=== PATIENT | male | born 1965 | race Caucasian/White ===

== ENCOUNTER → 2017-02-10 | Outpatient (REF) | payer OTHER ==
[2017-02-10 12:02] LABS: MEAN CORPUSCULAR HEMOGLOBIN 32.4 pg (27.0-33.0); MEAN CORPUSCULAR HGB CONC 34.6 g/dl (32.0-36.5); MEAN CORPUSCULAR VOLUME 93.6 fl (80.0-96.0); RED CELL DISTRIBUTION WIDTH 12.5 % (11.5-14.5); WHITE BLOOD COUNT 5.6 K/mm3 (4.0-10.0)
[2017-02-10 12:34] LABS: ALBUMIN/GLOBULIN RATIO 1.29 (1.00-1.93); ALKALINE PHOSPHATASE 89 U/L (45-117); ALT/SGPT 38 U/L (12-78); ANION GAP 6 MEQ/L (8-16); AST/SGOT 11 U/L (15-37); BILIRUBIN,TOTAL 1.1 MG/DL (0.2-1.0); BLOOD UREA NITROGEN 16 MG/DL (7-18); CALCIUM LEVEL 9.5 MG/DL (8.5-10.1); CARBON DIOXIDE LEVEL 29 MEQ/L (21-32); CHLORIDE LEVEL 105 MEQ/L (98-107); CHOLESTEROL LEVEL 232 MG/DL (<200); CREATININE FOR GFR 1.09 MG/DL (0.70-1.30); GLOMERULAR FILTRATION RATE > 60.0 (>56); GLUCOSE, FASTING 92 MG/DL (70-105); SODIUM LEVEL 140 MEQ/L (136-145); TOTAL PROTEIN 7.1 GM/DL (6.4-8.2); TRIGLYCERIDES LEVEL 147 MG/DL (<150)
[2017-02-10 12:46] LABS: POTASSIUM SERUM 5.6 MEQ/L (3.5-5.1)
== END ==
LOC: M SFHCLERA 08:47
PROVIDERS: ATTEND Physician Assistant
DX: Z00.00 Encounter for general adult medical examination without abnormal findings (principal); Z13.220 Encounter for screening for lipoid disorders; Z12.5 Encounter for screening for malignant neoplasm of prostate

== ENCOUNTER → 2022-06-24 | Outpatient (REF) | payer OTHER | LOC: M LAB REF 17:07 | PROVIDERS: ATTEND Internal Medicine | DX: Z13.89 Encounter for screening for other disorder (principal) ==

== ENCOUNTER → 2023-05-29 | Outpatient (CLI) | payer OTHER, SELFPAY | LOC: M RAD 13:57 | PROVIDERS: ATTEND Nurse Practitioner Family | DX: R22.1 Localized swelling, mass and lump, neck (principal) ==

== ENCOUNTER 2023-06-20 11:55 | Day surgery (SDC) | payer OTHER ==
[~2023-06-20] VITALS: Ht 188 cm; Wt 120.2 kg
[~2023-06-20 11:55] MED LIST: PANT40TA29 PO; PRIL20TA2 PO; UNRESOLVED CLARIFICATION ENTRY XX SCH
[2023-06-20] MEDS ORDERED: propofoL 200 MG/20 ML VIAL As Ordered ONE (12:23)
[2023-06-20] MEDS ORDERED: LIDOCAINE 2% 100MG/5ML SDV (FOR ANES.) As Ordered ONE (12:23)
[2023-06-20] MEDS ORDERED: MIDAZOLAM INJ 2MG/2ML VIAL As Ordered ONE (12:23)
[2023-06-20] MEDS ORDERED: fentaNYL 100 MCG/2 ML INJECTION As Ordered ONE ×2 (12:23→13:39)
[2023-06-20] MEDS ORDERED: ONDANSETRON 4MG 2ML VIAL As Ordered ONE (12:24)
[2023-06-20] MEDS ORDERED: ROCURONIUM BROMIDE 50MG/5ML VIAL As Ordered ONE (12:24)
[2023-06-20] MEDS ORDERED: ceFAZolin 2 GM/D5W 50 ML IV BAG As Ordered ONE (13:20)
[2023-06-20] MEDS ORDERED: ceFAZolin 1GM VIAL As Ordered ONE (13:20)
[2023-06-20] MEDS ORDERED: ceFAZolin SOD 1 GM in D5W MINI-BAG PLUS 50 ML IV ONE (13:30)
[2023-06-20] MEDS ORDERED: ACETAMINOPHEN 1000MG 100ML IV BAG As Ordered ONE (13:30)
[2023-06-20] MEDS ORDERED: ceFAZolin SOD 2 GM in IV 1 EA IV ONE (13:30)
[2023-06-20] MEDS ORDERED: SUGAMMADEX SODIUM 500 MG/5 ML VIAL (BRIDION) As Ordered ONE (13:38)
[2023-06-20] MEDS ORDERED: KETOROLAC 60MG 2ML VIAL As Ordered ONE (13:38)
[2023-06-20] MEDS ORDERED: fentaNYL 100 MCG/2 ML INJECTION IV PRN (14:10)
[2023-06-20] MEDS ORDERED: ONDANSETRON 4MG 2ML VIAL IV PRN (14:10)
[2023-06-20] MEDS ORDERED: LR 1,000 ML IV SCH (14:10)
[2023-06-20] MEDS ORDERED: PERCOCET 5MG/325MG TAB PO PRN ×2 (14:50)
[2023-06-20] MEDS ORDERED: NS 1,000 ML IV SCH (14:50)
[2023-06-20 15:40] VITALS: BP 149/89; TEMP 96.7; O2SAT 95
== END 2023-06-20 16:13 | disposition home or self-care (01) ==
LOC: M SDC 11:55
PROVIDERS: ATTEND Surgery
DX: K42.9 Umbilical hernia without obstruction or gangrene (principal); K21.9 Gastro-esophageal reflux disease without esophagitis; K22.70 Barrett's esophagus without dysplasia; R06.83 Snoring; Z79.899 Other long term (current) drug therapy; Z88.5 Allergy status to narcotic agent; Z87.891 Personal history of nicotine dependence
CPT/HCPCS: 49593; 88302; C1781; C9290; J0131; J0665; J0690; J1100; J1885; J2250; J2405; J3010

== ENCOUNTER → 2023-07-07 | Outpatient (CLI) | payer OTHER ==
[~2023-07-07] MED LIST changes: +ISOVUE-370 76% 100ML VIAL As Ordered ONE; -UNRESOLVED CLARIFICATION ENTRY XX SCH
== END ==
LOC: M RAD 07:49
PROVIDERS: ATTEND Internal Medicine
DX: R22.1 Localized swelling, mass and lump, neck (principal)
CPT/HCPCS: 70491; Q9967

== ENCOUNTER → 2023-09-19 | Outpatient (CLI) | payer OTHER ==
[~2023-09-19] MED LIST changes: -ISOVUE-370 76% 100ML VIAL As Ordered ONE
== END ==
LOC: M ONCR 08:47
PROVIDERS: ATTEND General Practice
DX: C01 Malignant neoplasm of base of tongue (principal); Z71.2 Person consulting for explanation of examination or test findings; Z87.891 Personal history of nicotine dependence; Z80.1 Family history of malignant neoplasm of trachea, bronchus and lung; Z88.5 Allergy status to narcotic agent; Z79.899 Other long term (current) drug therapy
CPT/HCPCS: 31575; G0463

== ENCOUNTER 2023-09-28 07:15 | Day surgery (SDC) | payer OTHER ==
[~2023-09-28] VITALS: Ht 188 cm; Wt 119.7 kg
[~2023-09-28 07:15] MED LIST changes: +IBUP200C25 PO; +LIDOCAINE W/EPINEPHRINE 1% 20ML VIAL As Ordered ONE; +METHYLENE BLUE 0.5% (5MG/ML) 10 ML AMP (PROVAYBLUE) As Ordered ONE; +OXYMETAZOLINE 0.05% NASAL SPRAY (AFRIN) As Ordered ONE
[2023-09-28] MEDS ORDERED: LR 1,000 ML IV SCH ×3 (07:55→19:20)
[2023-09-28] MEDS ORDERED: MIDAZOLAM INJ 2MG/2ML VIAL As Ordered ONE (15:28)
[2023-09-28] MEDS ORDERED: fentaNYL 100 MCG/2 ML INJECTION As Ordered ONE ×2 (15:28→18:01)
[2023-09-28] MEDS ORDERED: LIDOCAINE 2% 100MG/5ML SDV (FOR ANES.) As Ordered ONE (15:29)
[2023-09-28] MEDS ORDERED: ONDANSETRON 4MG 2ML VIAL As Ordered ONE (15:29)
[2023-09-28] MEDS ORDERED: propofoL 200 MG/20 ML VIAL As Ordered ONE (15:29)
[2023-09-28] MEDS ORDERED: ACETAMINOPHEN 1000MG 100ML IV BAG As Ordered ONE (15:29)
[2023-09-28] MEDS ORDERED: ROCURONIUM BROMIDE 50MG/5ML VIAL As Ordered ONE (15:31)
[2023-09-28] MEDS ORDERED: dexmedeTOMIDine (4MCG/ML)200MCG/50ML BTL (PRECEDEX) As Ordered ONE (15:33)
[2023-09-28] MEDS ORDERED: LIDOCAINE W/EPINEPHRINE 1% 20ML VIAL As Ordered ONE (17:04)
[2023-09-28] MEDS ORDERED: METHYLENE BLUE 0.5% (5MG/ML) 10 ML AMP (PROVAYBLUE) As Ordered ONE (17:04)
[2023-09-28] MEDS ORDERED: OXYMETAZOLINE 0.05% NASAL SPRAY (AFRIN) As Ordered ONE (17:04)
[2023-09-28] MEDS ORDERED: SUGAMMADEX SODIUM 500 MG/5 ML VIAL (BRIDION) As Ordered ONE (17:50)
[2023-09-28] MEDS ORDERED: ONDANSETRON 4MG 2ML VIAL IV PRN ×2 (18:35→19:20)
[2023-09-28] MEDS ORDERED: fentaNYL 100 MCG/2 ML INJECTION IV PRN ×2 (18:35→19:20)
[2023-09-28 19:35] VITALS: BP 153/85; TEMP 97.3; O2SAT 95
== END 2023-09-28 19:57 | disposition home or self-care (01) ==
LOC: M SDC 07:15
PROVIDERS: ATTEND Otolaryngology
DX: C01 Malignant neoplasm of base of tongue (principal); R59.0 Localized enlarged lymph nodes; K21.9 Gastro-esophageal reflux disease without esophagitis; Z79.899 Other long term (current) drug therapy; Z87.19 Personal history of other diseases of the digestive system; Z87.891 Personal history of nicotine dependence
CPT/HCPCS: 31536; 88305; J0131; J1100; J2250; J2405; J3010; Q9968

== ENCOUNTER 2023-10-03 10:12 | Outpatient (RCR) | payer OTHER ==
[~2023-10-03 10:12] MED LIST changes: +APPL300T4 PO; -LIDOCAINE W/EPINEPHRINE 1% 20ML VIAL As Ordered ONE; -METHYLENE BLUE 0.5% (5MG/ML) 10 ML AMP (PROVAYBLUE) As Ordered ONE; +MULT-6 PO; -OXYMETAZOLINE 0.05% NASAL SPRAY (AFRIN) As Ordered ONE
== END 2023-10-11 ==
LOC: M ONCR 10:12
PROVIDERS: ATTEND General Practice
DX: Z51.0 Encounter for antineoplastic radiation therapy (principal); C01 Malignant neoplasm of base of tongue

== ENCOUNTER → 2023-10-27 | Outpatient (CLI) | payer OTHER ==
[~2023-10-27] MED LIST changes: +LIDOCAINE 1% MDV 20ML VIAL As Ordered ONE; +LIDOCAINE W/EPINEPHRINE 1% 20ML VIAL As Ordered ONE; +MIDAZOLAM INJ 2MG/2ML VIAL As Ordered ONE; +ONDA-84 PO; +PROC10TA5 PO; +ceFAZolin 2 GM/D5W 50 ML IV BAG As Ordered ONE; +fentaNYL 100 MCG/2 ML INJECTION As Ordered ONE
[2023-10-27 08:24] VITALS: TEMP 97.7
[2023-10-27] MEDS: NS 1,000 ML IV SCH (09:30)
[2023-10-27] MEDS: ceFAZolin SOD 2 GM in IV 1 EA IV ONE (09:30)
[2023-10-27 11:00] VITALS: BP 135/69; O2SAT 96
== END ==
LOC: M IRPRO 08:19
PROVIDERS: ATTEND Internal Medicine Medical Oncology
DX: C01 Malignant neoplasm of base of tongue (principal)
CPT/HCPCS: 36561; 99152; 99153; J0690; J2250; J3010

== ENCOUNTER → 2023-11-09 | Outpatient (RCR) | payer OTHER ==
[~2023-11-09] MED LIST changes: -LIDOCAINE 1% MDV 20ML VIAL As Ordered ONE; -LIDOCAINE W/EPINEPHRINE 1% 20ML VIAL As Ordered ONE; -MIDAZOLAM INJ 2MG/2ML VIAL As Ordered ONE; -ceFAZolin 2 GM/D5W 50 ML IV BAG As Ordered ONE; -fentaNYL 100 MCG/2 ML INJECTION As Ordered ONE
== END ==
LOC: M ONCR 11-01 08:57
PROVIDERS: ATTEND General Practice
DX: Z51.0 Encounter for antineoplastic radiation therapy (principal); C01 Malignant neoplasm of base of tongue

== ENCOUNTER 2023-12-08 14:16 | Outpatient (RCR) | payer OTHER ==
[~2023-12-08 14:16] MED LIST changes: +FLUC100T3 PO; +OXYC-517 PO
== END 2023-12-10 ==
LOC: M ONCR 14:16
PROVIDERS: ATTEND General Practice
DX: Z51.0 Encounter for antineoplastic radiation therapy (principal); C01 Malignant neoplasm of base of tongue

== ENCOUNTER 2023-12-21 15:18 | Outpatient (RCR) | payer OTHER ==
[2023-12-28] MEDS ORDERED: PROC10TA5 PO (09:55)
[2023-12-28] MEDS ORDERED: OXYC-517 PO (09:55)
[2023-12-28] MEDS ORDERED: ONDA-84 PO (09:55)
[2023-12-28] MEDS ORDERED: MAGICMW SSP (09:55)
[2023-12-28] MEDS ORDERED: FLUC100T3 PO (09:55)
[2023-12-28] MEDS ORDERED: PRED20TA PO (11:51)
[2023-12-29] MEDS ORDERED: NYST-38 PO (09:19)
[2023-12-30] MEDS ORDERED: DEXA4TA PO (09:16)
== END 2024-01-09 ==
LOC: M ONCR 15:18
PROVIDERS: ATTEND General Practice
DX: Z51.0 Encounter for antineoplastic radiation therapy (principal); C01 Malignant neoplasm of base of tongue

== ENCOUNTER 2023-12-28 06:48 | Emergency (ER) | payer OTHER ==
[~2023-12-28] VITALS: Ht 188 cm; Wt 104.0 kg
[2023-12-28 08:41] LABS: HEMATOCRIT 33.6 % (42.0-52.0); HEMOGLOBIN 11.9 g/dl (13.5-17.5); MEAN CORPUSCULAR HEMOGLOBIN 31.9 pg (27.0-33.0); MEAN CORPUSCULAR HGB CONC 35.4 g/dl (32.0-36.5); MEAN CORPUSCULAR VOLUME 90.1 fl (80.0-96.0); PLATELET COUNT, AUTOMATED 130 10^3/uL (150-450); RED BLOOD COUNT 3.73 10^6/uL (4.30-6.10); WHITE BLOOD COUNT 3.7 10^3/uL (4.0-10.0)
[2023-12-28 08:53] LABS: ERYTHROCYTE SEDIMENTATION RATE 13 mm/hr (0-20)
[2023-12-28 09:07] LABS: BLOOD UREA NITROGEN 17 MG/DL (9-23); CALCIUM LEVEL 7.4 MG/DL (8.5-10.1); CARBON DIOXIDE LEVEL 30 MMOL/L (20-31); CHLORIDE LEVEL 101 MMOL/L (98-107); CREATININE FOR GFR 0.96 MG/DL (0.70-1.30); GLOMERULAR FILTRATION RATE > 60.0 (>56); GLUCOSE, FASTING 80 MG/DL (60-100); POTASSIUM SERUM 3.3 MMOL/L (3.5-5.1); SODIUM LEVEL 143 MMOL/L (136-145)
[2023-12-28] MEDS: ONDANSETRON 4MG 2ML VIAL IV ONE (09:11)
[2023-12-28 09:44] VITALS: BP 133/80; TEMP 97.6; O2SAT 98
[2023-12-28] MEDS: ACETAMINOPHEN TAB 650MG DOSE (2X325MG) PO ONE (09:52)
[2023-12-28] MEDS: NS 1,000 ML IV ONE (09:54)
[2023-12-28] MEDS ORDERED: FLUC100T3 PO (09:55)
[2023-12-28] MEDS ORDERED: OXYC-517 PO (09:55)
[2023-12-28] MEDS ORDERED: PROC10TA5 PO (09:55)
[2023-12-28] MEDS ORDERED: ONDA-84 PO (09:55)
[2023-12-28] MEDS ORDERED: MAGICMW SSP (09:55)
[2023-12-28] MEDS ORDERED: HOME MED LIST COMPLETE! XX SCH (10:00)
[2023-12-28] MEDS: diphenhydrAMINE 50MG/ML VIAL IV STA (10:38)
[2023-12-28] MEDS ORDERED: PRED20TA PO (11:51)
[2023-12-28] MEDS: SODIUM CHLORIDE 0.9% INJ 10 ML SYR IV PRN (12:31)
[2023-12-29] MEDS ORDERED: NYST-38 PO (09:19)
== END 2023-12-28 12:33 | disposition home or self-care (01) ==
LOC: M ED 06:48
DX: R21 Rash and other nonspecific skin eruption (principal); R19.7 Diarrhea, unspecified; Z92.21 Personal history of antineoplastic chemotherapy; Z92.3 Personal history of irradiation; C02.9 Malignant neoplasm of tongue, unspecified; K22.70 Barrett's esophagus without dysplasia; Z87.891 Personal history of nicotine dependence; Z79.899 Other long term (current) drug therapy; Z88.5 Allergy status to narcotic agent
CPT/HCPCS: 80048; 85027; 85652; 86140; 87040; 87077; 87507; 96361; 96374; 96375; 99283; J1200; J2405

== ENCOUNTER → 2024-01-04 | Outpatient (CLI) | payer OTHER ==
[~2024-01-04] MED LIST changes: +DEXA4TA PO; +MAGICMW SSP; +NYST-38 PO; +PRED20TA PO
== END ==
LOC: M ONCR 15:26
PROVIDERS: ATTEND General Practice
DX: Z01.89 Encounter for other specified special examinations (principal)

== ENCOUNTER → 2024-02-15 | Outpatient (CLI) | payer OTHER ==
[~2024-02-15] MED LIST changes: +MAGN400T2 PO
== END ==
LOC: M ONCR 14:51
PROVIDERS: ATTEND General Practice
DX: C01 Malignant neoplasm of base of tongue (principal); R60.9 Edema, unspecified; Z92.21 Personal history of antineoplastic chemotherapy; Z92.3 Personal history of irradiation

== ENCOUNTER → 2024-03-25 | Outpatient (CLI) | payer OTHER | LOC: M PLARAD 07:36 | PROVIDERS: ATTEND General Practice | DX: C01 Malignant neoplasm of base of tongue (principal) | CPT/HCPCS: 78815; A9552 ==

== ENCOUNTER → 2024-03-26 | Outpatient (CLI) | payer OTHER | LOC: M ONCR 14:46 | PROVIDERS: ATTEND General Practice | DX: C01 Malignant neoplasm of base of tongue (principal); R68.2 Dry mouth, unspecified; Z87.891 Personal history of nicotine dependence; Z92.21 Personal history of antineoplastic chemotherapy; Z92.3 Personal history of irradiation; Z88.5 Allergy status to narcotic agent; Z79.899 Other long term (current) drug therapy | CPT/HCPCS: 31575; G0463 ==

== ENCOUNTER → 2024-06-26 | Outpatient (CLI) | payer OTHER | LOC: M ONCR 14:20 | PROVIDERS: ATTEND General Practice | DX: C01 Malignant neoplasm of base of tongue (principal); Z79.899 Other long term (current) drug therapy; Z87.891 Personal history of nicotine dependence; Z88.5 Allergy status to narcotic agent; Z92.23 Personal history of estrogen therapy; Z92.3 Personal history of irradiation | CPT/HCPCS: 31575; G0463 ==

== ENCOUNTER → 2024-09-26 | Outpatient (CLI) | payer OTHER ==
[~2024-09-26] MED LIST changes: +LEVO50TA5 PO
[2024-09-26 15:46] LABS: FREE T3 3.8 PG/ML (2.3-4.2)
[2024-09-26 15:47] LABS: FREE T4 1.15 NG/DL (0.89-1.76); THYROID STIMULATING HORMONE 2.272 uIU/ML (0.55-4.78)
== END ==
LOC: M ONCR 14:35
PROVIDERS: ATTEND General Practice
DX: C01 Malignant neoplasm of base of tongue (principal); Z87.891 Personal history of nicotine dependence; Z92.21 Personal history of antineoplastic chemotherapy; Z92.3 Personal history of irradiation; Z88.5 Allergy status to narcotic agent; Z79.890 Hormone replacement therapy
CPT/HCPCS: 31575; 36415; 84439; 84443; 84481; G0463

== ENCOUNTER → 2024-10-15 | Outpatient (CLI) | payer OTHER ==
[~2024-10-15] MED LIST changes: +LIDOCAINE 1% MDV 20ML VIAL As Ordered ONE; +MIDAZOLAM INJ 2MG/2ML VIAL As Ordered ONE; +NS (Normal Saline) 0.9% 1,000 ML IV SCH; +THERTAB52 PO; +ceFAZolin 2 GM/D5W 50 ML IV BAG As Ordered ONE; +fentaNYL 100 MCG/2 ML INJECTION As Ordered ONE
[2024-10-15 08:35] VITALS: TEMP 97.6
[2024-10-15] MEDS: ceFAZolin SOD 2 GM in IV 1 EA IV ONE (09:03)
[2024-10-15 10:10] VITALS: BP 121/82; O2SAT 99
== END ==
LOC: M IRPRO 08:24
PROVIDERS: ATTEND General Practice
DX: C01 Malignant neoplasm of base of tongue (principal)
CPT/HCPCS: 36590; 99152; J0690; J2250; J3010

== ENCOUNTER → 2024-12-13 | Outpatient (CLI) | payer OTHER ==
[~2024-12-13] MED LIST changes: -LIDOCAINE 1% MDV 20ML VIAL As Ordered ONE; -MIDAZOLAM INJ 2MG/2ML VIAL As Ordered ONE; -NS (Normal Saline) 0.9% 1,000 ML IV SCH; -ceFAZolin 2 GM/D5W 50 ML IV BAG As Ordered ONE; -fentaNYL 100 MCG/2 ML INJECTION As Ordered ONE
== END ==
LOC: M ONCR 08:48
PROVIDERS: ATTEND General Practice
DX: Z08 Encounter for follow-up examination after completed treatment for malignant neoplasm (principal); Z85.810 Personal history of malignant neoplasm of tongue; Z87.891 Personal history of nicotine dependence; Z92.21 Personal history of antineoplastic chemotherapy; Z92.3 Personal history of irradiation; Z88.5 Allergy status to narcotic agent; Z79.890 Hormone replacement therapy
CPT/HCPCS: 31575; G0463

== ENCOUNTER → 2024-12-27 | Outpatient (CLI) | payer OTHER ==
[~2024-12-27] MED LIST changes: +ISOVUE-370 76% 100ML VIAL As Ordered ONE
== END ==
LOC: M RAD 07:53
PROVIDERS: ATTEND Nurse Practitioner Women's Health
DX: C02.9 Malignant neoplasm of tongue, unspecified (principal); M50.33 Other cervical disc degeneration, cervicothoracic region
CPT/HCPCS: 70491; 71260; Q9967

== ENCOUNTER → 2025-03-21 | Outpatient (CLI) | payer OTHER ==
[~2025-03-21] MED LIST changes: -ISOVUE-370 76% 100ML VIAL As Ordered ONE
== END ==
LOC: M ONCR 08:26
PROVIDERS: ATTEND General Practice
DX: C01 Malignant neoplasm of base of tongue (principal); Z87.891 Personal history of nicotine dependence; Z88.5 Allergy status to narcotic agent; Z92.21 Personal history of antineoplastic chemotherapy; Z92.3 Personal history of irradiation
CPT/HCPCS: 31575; G0463

== ENCOUNTER → 2025-04-18 | Outpatient (CLI) | payer OTHER | LOC: M PLAIMG 07:25 | PROVIDERS: ATTEND Registered Nurse | DX: R94.31 Abnormal electrocardiogram [ECG] [EKG] (principal) ==

== ENCOUNTER → 2025-06-13 | Outpatient (CLI) | payer OTHER ==
[~2025-06-13] MED LIST changes: +ISOVUE-370 76% 100 ML VIAL As Ordered ONE
== END ==
LOC: M RAD 10:56
PROVIDERS: ATTEND General Practice
DX: R59.0 Localized enlarged lymph nodes (principal); M50.30 Other cervical disc degeneration, unspecified cervical region; C02.9 Malignant neoplasm of tongue, unspecified
CPT/HCPCS: 70491; 71260; Q9967